=== PATIENT | female | born 1935 | race Native Hawaiian/Other Pacific Islander ===

== ENCOUNTER 2017-01-05 10:47 | Observation (INO) | payer MEDICAID ==
[2017-01-05] VITALS (8 sets, daily range): BP systolic 148–183; BP diastolic 48–92; PULSE 42–64; RESP 14–18; O2SAT 96–99
[~2017-01-05] VITALS: Ht 152.4 cm; Wt 85.6 kg
--- NOTE | 2017-01-05 10:53 | ED.REPORT ---
HPI-General Illness Date of Service Jan 05, 2017 ED Provider: Jeison Brooks Pt is an 81 y/o female w/ a hx of IDDM, HTN, hyperlipidemia, hypothyroid, presenting to the ED via EMS with family due to generalized weakness and fatigue onset this morning. Family called EMS because the patient has been excessively fatigued today to the point of falling asleep during conversations. Associated symptoms include nausea, dizziness, lightheadedness, abdominal pain, constipation. She denies vomiting, focal numbness or weakness, slurred speech. They deny drug or alcohol use. She was apparently completely normal yesterday. Nursing Notes Stated Complaint: WEAKNESS Chief Complaint: General Complaint Nursing Notes Reviewed: Yes Allergies: Coded Allergies: No Known Allergies (Unverified , 01/05/17) Scheduled Aspirin (Aspirin) 81 Mg Tablet 81 MG PO DAILY Cholecalciferol (Vitamin D3) (Vitamin D) 1,000 Unit Tablet 2,000 UNITS PO DAILY Gabapentin (Gabapentin) 100 Mg Capsule 100 MG PO HS Hydrochlorothiazide (Hydrochlorothiazide) 12.5 Mg Capsule 12.5 MG PO DAILY Insulin Aspart (NovoLOG U-100 Pen) 100 Unit/Ml Insuln.pen 10 UNITS SQ MORNING Insulin Aspart (NovoLOG U100 Insulin Vial) 100 U/Ml U 7 UNIT SUBQ lunch/dinner Insulin Glargine (Lantus U100 Insulin Vial) 100 Unit/Ml Vial 40 UNITS SQ MORNING Levothyroxine (Levothyroxine) 100 Mcg Tablet 100 MCG PO DAILY Lisinopril (Lisinopril) 30 Mg Tablet 30 MG PO DAILY Lovastatin (Lovastatin) 40 Mg Tablet 40 MG PO HS Metformin ER (Metformin ER) 1,000 Mg Tablet 1,000 MG PO DAILY General Time Seen by MD: 10:52 Chief Complaint Other (Fatigue) Hx Obtained From: Patient, Other family..., EMS Arrived By: Ambulance Sudden in Onset?: No Onset Occurred: 1 - 4 hours ago Symptom Duration: Since onset Location: : Abdomen Quality: Painful Severity: Current: Mild Severity: Maximum: Mild Past Medical History Past Medical History IDDM Thyroid cancer Hypothyroid Hypertension Hyperlipidemia Past Surgical History None reported Smoking History Unknown if Ever Smoker Ambulatory Status Independent Review of Systems Full Review of Systems Constitutional: Reports: Fatigue, Weakness - generalized, Denies: Chills, Fever GI: Reports: Abdominal pain, Constipation, Nausea, Denies: Vomiting Neurologic: Reports: Dizziness, Lightheaded, Denies: Focal weakness, Numbness Complete sys rev & neg: except as marked. Physical Exam Vital Signs Vital Signs Date Time Temp Pulse Resp B/P Pulse Ox O2 Delivery O2 Flow Rate FiO2 01/05/17 13:21 36 60 16 151/67 97 Room Air 01/05/17 10:52 36.5 58 15 156/48 99 Room Air Initial VS: Reviewed, Vital signs normal ENT: Mucous membranes moist, Conjunctiva normal, No scleral icterus Neck: Supple, Full range of motion Respiratory: Breath sounds normal, Clear to auscultation, No respiratory distress Cardiovascular: Regular rate & rhythm, Heart sounds normal, Intact distal pulses Extremities: Vascular intact, Neuro intact, No swelling, No tenderness Skin: Warm, Dry, No cyanosis Psychiatric: Mood/affect normal, Behavior normal, Normal thought content General/Constitutional: Awake, Alert, Cooperative, Not toxic appearing Somnolent but easily arousable Head / Eyes: Atraumatic, Normocephalic, PERRL, EOMI, No nystagmus Abdomen: Atraumatic, Soft, No guarding, No rebound, No distention, No palpable mass Tenderness/Guarding/Rebound: Positive: Tender epigastric (mild) Neurologic: Oriented X3, Speech NL, No motor deficits, No sensory deficits, Cerebellar NL Conversant with normal voice Interpretation & Diagnostics Lab Results Interpretation Result Diagram: 01/05/17 1100 01/05/17 1100 Test 01/05/17 11:00 01/05/17 12:06 White Blood Count 6.1th/mm3 (3.8-10.1) Red Blood Count 4.28mil/mm3 (3.90-5.20) Hemoglobin 12.3g/dL (12.0-15.6) Hematocrit 36.7% (35.0-46.0) Mean Corpuscular Volume 85.7fL (81-100) Mean Corpuscular Hemoglobin 28.7pg (27.0-35.0) Mean Corpuscular Hemoglobin Concent 33.5% (32.0-37.0) Red Cell Distribution Width 12.7% (12.3-15.4) Platelet Count 234bil/L (150-400) Neutrophils (%) (Auto) 59.5% (40-74) Lymphocytes (%) (Auto) 27.8% (14-46) Monocytes (%) (Auto) 7.0% (4-12) Eosinophils (%) (Auto) 5.2% (0-5) Basophils (%) (Auto) 0.3% (0-3) Prothrombin Time 10.0sec (8.1-12.5) Prothromb Time International Ratio 0.94ratio Activated Partial Thromboplast Time 26.0sec (22.8-33.0) Sodium Level 138mEq/L (134-144) Potassium Level 3.7mEq/L (3.5-5.2) Chloride Level 99mEq/L (97-108) Carbon Dioxide Level 25mmol/L (18-29) Blood Urea Nitrogen 20mg/dL (8-27) Creatinine 0.99mg/dL (0.57-1.00) Estimat Glomerular Filtration Rate 77mL/min (>59) Glucose Level 219mg/dL (60-99) Calcium Level 9.2mg/dL (8.5-10.1) Total Bilirubin 0.4mg/dL (0.0-1.2) Aspartate Amino Transf (AST/SGOT) 14U/L (0-50) Alanine Aminotransferase (ALT/SGPT) 8U/L (0-32) Alkaline Phosphatase 54U/L (25-165) Troponin T 0.010ug/L (0.0-0.011) Total Protein 6.5g/dL (6.4-8.4) Albumin 3.3g/dL (3.4-5.0) Alcohols < 10mg/dL (0-10) Urine Color Yellow (YELLOW) Urine Appearance Hazy (CLEAR,HAZY) Urine pH 5.5 (5.0-8.0) Urine Specific [place] 1.020 (1.003-1.035) Urine Protein Tracemg/dL (NEG,TRACE) Urine Glucose (UA) 100mg/dL (NEGATIVE) Urine Ketones Negativemg/dL (NEGATIVE) Urine Occult Blood Trace (NEGATIVE) Urine Nitrite Negative (NEGATIVE) Urine Bilirubin Negative (NEGATIVE) Urine Urobilinogen Normalmg/dL (NORMAL) Urine Leukocyte Esterase Negative (NEGATIVE) Urine RBC 0-2/hpf (0-2) Urine WBC 0-5/hpf (0-5) Urine Epithelial Cells Occasional/hpf (NONE-MOD) Urine Crystals None seen (NONE SEEN) Urine Bacteria Few/hpf (NONE-FEW) Urine Hyaline Casts None/lpf (NONE) Urine Granular Casts None seen (NONE SEEN) Urine Waxy Casts None seen (NONE SEEN) Urine Red Blood Cell Casts None seen (NONE SEEN) Urine White Blood Cell Casts None seen (NONE SEEN) Urine Mucus None seen (None Seen) Urine Trichomonas None seen (NONE SEEN) Urine Yeast None (NONE SEEN) Urinalysis Comment None Urine Culture Reflexed Not indicated Urine Opiates Screen Negative Urine Methadone Screen Negative Urine Barbiturates Screen Negative Urine Amphetamines Screen Negative Urine Benzodiazepines Screen Negative Urine Cocaine Metabolite Screen Negative Urine Cannabinoids Screen Negative ECG Interpretation ECG Interpretation: Sinus or ectopic atrial rhythm rate 50 Time: 11:10 Interpreted by: ED physician Normal ECG Interpretation: No acute ischemic changes, No change from prior ECGs ABG Interpretation ABG Interpretation: 7.424/43/79.8/27.6/3.3 Exam Performed by: [facility] Exam Interpreted by: ED physician Indication: Other (Somnolence) X-Ray Chest Interpretation Chest Xray Interpretation: IMPRESSION: No acute cardiopulmonary disease process. Dictated by: Azra Nava MD, PhD on 01/05/2017 at 11:33 Approved by: Azra Nava MD, PhD on 01/05/2017 at 11:33 View: Portable, 1 view Interpretation / Wet Read by: Interpret - Radiologist CT Head Interpretation IMPRESSION: 1. Thin hyperdense serpiginous appearance within the left frontal lobe laterally extending to the calvarium. Overall appearance appears more dense than expected for hemorrhage and finding is suspicious related to chronic calcifications, possibly dural in nature. However, given the somewhat atypical appearance, small focus of underlying hemorrhage cannot be definitively excluded. Six-hour interval followup is recommended to document stability. 2. Moderate atrophy and chronic microvascular ischemic changes. Dictated by: Georgina Acevedo M.D. on 01/05/2017 at 11:42 Approved by: Georgina Acevedo M.D. on 01/05/2017 at 11:44 Study: Head CT no contrast Interpretation / Wet Read by: Interpret - Radiologist Re-Eval/Medical Decision Med Decision/Clinical Course 1-year-old diabetic with somnolence and dizziness of unclear etiology. Will plan to admit for stroke. Neurology consulted. Aspirin is held and not given due to CT readings which which may represent either calcification or a minor bleed. NIH stroke scale is 5 however for the points are treatable to bilateral symmetric lower extremity weakness. Time of Eval: 12:28 Re-Evaluation/Progress Note: Pt rechecked. Continues to feel dizzy and lightheaded. Informed pt of need for admission. Pt understands and agrees with plan for admission. All questions addressed. Consultation #1: Referral / Consult Name: Alexander Hoover MD Consulted With: Hospitalist Call Returned at: 13:44 Spare Hand: Will see patient, Agrees with eval, Agrees with plan, Accepts admit Note: Requests neuro be consulted. Consultation #2: Referral / Consult Name: Al Snyder MD Consulted With: Neurology Call Returned at: 13:58 Spare Hand: Agrees with eval, Agrees with plan Note: Will consult if requested. Counseled Regarding: Diagnosis, Lab results, Need for admission Discharge & Departure Primary Impression: Dizziness Additional Impression: At risk for stroke Disposition: ADMITTED TO HOSPITAL Discharge Condition All VS Reviewed: Yes Condition: Stable Referrals: OTHER,PHYSICIAN (PCP) Scribe Attestation Portions of this note were transcribed by Noble Guerra. I, Dr. Brooks, personally performed the history, physical exam and medical decision-making; I reviewed and confirmed the accuracy of the information in the transcribed note. Signed by Zohra Astudillo, 01/05/17 - 0449 Risk Factors )( TPA Administration/Criteria Stroke Thrombolytic Therapy : TPA Considered: Yes TPA Administered Intravenously: No, not indicated NIH Stroke Scale Level of Consciousness: Not alert, arousable (1) Ask Month & Age: Both questions right (0) Open/Close Eyes/Hand Supervisor Vat House: Performs both tasks (0) Horizontal EO Movements: None (0) Visual Martin: No visual loss (0) Facial Palsy: Normal symmetry (0) Right Arm Motor Drift (10s): No drift 10 sec (0) Left Arm Motor Drift (10s): No drift 10 sec (0) Right Leg Motor Drift (5s): Drift, hits bed (2) Left Leg Motor Drift (5s): Drift, hits bed (2) Limb Ataxia FNF/Heel-Alexis: No ataxia (0) Sensation (Arms/Legs/Face): No sensory loss (0) Language Aphasia: No aphasia, normal (0) Dysarthria: No dysarthria, normal (0) Extinction/Inattention: No exctinct/inattent (0) NIHSS Score: 5 Time NIHSS Performed: 12:05 Date NIHSS Performed: Jan 05, 2017 Jeison Brooks DO Jan 05, 2017 10:53 NOBLE GUERRA Jan 05, 2017 11:03
[2017-01-05] MEDS ORDERED: 0.9% Sodium Chloride 1,000 ML IV ONE (10:57)
[2017-01-05 11:12] LABS: BASOPHILS % (AUTO) 0.3 % (0-3); EOSINOPHILS % (AUTO) 5.2 % (0-5); Mean Corpuscular Hemoglobin 28.7 pg (27.0-35.0); Mean Corpuscular Volume 85.7 fL (81-100); NEUTROPHILS % (AUTO) 59.5 % (40-74); Platelet Count 234 bil/L (150-400)
--- NOTE | 2017-01-05 11:34 | DRSVH ---
PROCEDURE: X-RAY CHEST ONE VIEW, PORTABLE ([id number]) INDICATIONS: weakness TECHNIQUE: One view of the chest was acquired. COMPARISON: [facility], CR, XR CHEST 1VW (PORTABLE), 02/06/2016, 17:14. FINDINGS: Surgical changes and devices: None. Lungs and pleura: No pleural effusions or pneumothorax. Lungs are clear. Mediastinum: Mediastinal contours appear normal. Heart size is normal. Bones and chest wall: No suspicious bony lesions. Overlying soft tissues appear unremarkable. IMPRESSION: No acute cardiopulmonary disease process. Dictated by: Azra Nava MD, PhD on 01/05/2017 at 11:33 Approved by: Azra Nava MD, PhD on 01/05/2017 at 11:33
[2017-01-05 11:38] LABS: INR 0.94 ratio
--- NOTE | 2017-01-05 11:46 | DRSVH ---
PROCEDURE: CT BRAIN WITHOUT CONTRAST ([id number]) INDICATIONS: excessive somnolence TECHNIQUE: Noncontrast 4.5 mm thick angled axial sections acquired from the foramen magnum to the vertex, with c oronal reformats. COMPARISON: None. FINDINGS: Image quality: Excellent. CSF spaces: Basal cisterns are patent. No extra-axial fluid collections. The ventricles are symmet dorota in size and shape. Brain: There is a focus of thin, serpiginous calcification along the lateral aspect of the left front al lobe seen on series 3 image 21, extending to the calvarium. No priors are available for comparison . There is cerebral volume loss for age, with resultant ventricular and sulcal prominence. There are periventricular and deep white matter chronic small vessel ischemic changes. There is intracranial internal carotid artery atherosclerosis. Skull and face: Calvarium and visualized facial bones appear intact, without suspicious lesions. Sinuses: Visualized sinuses and mastoids are clear. IMPRESSION: 1. Thin hyperdense serpiginous appearance within the left frontal lobe laterally extending to the mariana varium. Overall appearance appears more dense than expected for hemorrhage and finding is suspicious related to chronic calcifications, possibly dural in nature. However, given the somewhat atypical sarah earance, small focus of underlying hemorrhage cannot be definitively excluded. Six-hour interval foll owup is recommended to document stability. 2. Moderate atrophy and chronic microvascular ischemic changes. Dictated by: Georgina Acevedo M.D. on 01/05/2017 at 11:42 Approved by: Georgina Acevedo M.D. on 01/05/2017 at 11:44
--- NOTE | 2017-01-05 11:54 | NUR ---
Evaluation completed. Please go to "Notes" then click on "Assessments and Notes" (bottom left corner of screen). Then select appropriate discipline tab on top of screen.
--- NOTE | 2017-01-05 12:02 | ABG ---
DateTimeAnalyzed 11:57:00 -_ pH ____7.424 - 7.350 7.450 pCO2 ___42.9__ -mmHg 35.0 45.0 pO2 ___79.8__ -mmHg 69.0 116 HCO3- ___27.6__ -mmol/L 22.0 26.0 ABE ____3.3__ -mmol/L -2.0 2.0 tHb ___12.0__ -g/dL O2Hb ___94.7__ -% COHb ____1.3__ -% MetHb ____0.9__ -% sO2 ___96.8__ -% FIO2 ___21.0__ -% Drawn By MT - Date/Time Notified____ 12:02:00 -_ Notified By MT - Notified Whom _O'Georgina - B 751 -mmHg tO2 ___16.1__ -Vol% Danie test N/A -
[2017-01-05 12:40] LABS: APPEARANCE,URINE HAZY (CLEAR,HAZY); COLOR,URINE YELLOW (YELLOW); PH,URINE 5.5 (5.0-8.0); UROBILINOGEN,URINE NORMAL (NORMAL)
[2017-01-05 12:41] LABS: OCCULT BLOOD,URINE TRACE (NEGATIVE)
[2017-01-05] MEDS ORDERED: INSU100I SQ (13:11)
[2017-01-05] MEDS ORDERED: HYDR12.5 PO (13:11)
[2017-01-05] MEDS ORDERED: LISI30TA5 PO (13:11)
[2017-01-05] MEDS ORDERED: CHOL100043 PO (13:11)
[2017-01-05] MEDS ORDERED: GABA-500 PO (13:11)
[2017-01-05] MEDS ORDERED: METF-496 PO (13:11)
[2017-01-05] MEDS ORDERED: LOVA40TA PO (13:11)
[2017-01-05] MEDS ORDERED: INSU100C8 SUBQ (13:11)
[2017-01-05] MEDS ORDERED: LEVO100T6 PO (13:11)
[2017-01-05] MEDS ORDERED: INSU100V7 SQ (13:11)
[2017-01-05] MEDS ORDERED: ASPI-973 PO (13:11)
[2017-01-05] MEDS ORDERED: Polyethylene Glycol (PEG) 17 Gm Powder PO PRN (13:55)
[2017-01-05] MEDS ORDERED: Ondansetron 2 mg/mL 2 mL Inj IVPUSH PRN (13:55)
[2017-01-05] MEDS ORDERED: Alum-Mag Hydrox-Simeth 30 mL Suspension PO PRN (13:55)
--- NOTE | 2017-01-05 15:08 | NUR ---
Admit note- Received patient from Emergency Dept. Alert, but sleepy and slow to answer questions. Patient knows date.place and time. Able to sit up and transfer to bathroom with assist and guidance with PT. Gait was steady, but patient does complain of dizziness when getting up. Tele- sinus geraldo 50's. Patient speaks limited Urdu. Health history given by daughter and family members. Oriented to room, call light, tele, etc.
--- NOTE | 2017-01-05 15:25 | NUR ---
Evaluation completed. Please go to "Notes" then click on "Assessments and Notes" (bottom left corner of screen). Then select appropriate discipline tab on top of screen.
--- NOTE | 2017-01-05 16:19 | DRSVH ---
PROCEDURE: US BILATERAL DUPLEX DOPPLER IMAGING OF THE CAROTIDS ([id number]) INDICATIONS: Possible CVA TECHNIQUE: Color and pulse Doppler interrogation was performed of both carotid systems, with image documentation and velocity measurements. COMPARISON: None. FINDINGS: All stenosis calculations are based on NASCET criteria. Right side: Brachial blood pressure: Not obtained. Common carotid artery peak systolic velocity: 106 cm/sec. Internal carotid artery peak systolic velocity: 89 cm/sec. Internal carotid artery end diastolic velocity: 25 cm/sec. External carotid artery peak systolic velocity: 72 cm/sec. ICA/CCA peak systolic ratio: 0.8. Horan scale imaging description: Minimal plaque. Percent internal carotid artery stenosis: Less than 50%. Vertebral artery: Flow direction is antegrade. Left side: Brachial blood pressure: 177/70 mm Hg. Common carotid artery peak systolic velocity: 81 cm/sec. Internal carotid artery peak systolic velocity: 115 cm/sec. Internal carotid artery end diastolic velocity: 22 cm/sec. External carotid artery peak systolic velocity: Extending 9 cm/sec. ICA/CCA peak systolic ratio: 1.4 Horan scale imaging description: Minimal plaque. Percent internal carotid artery stenosis: Less than 50%. Vertebral artery: Flow direction is antegrade. IMPRESSION: Less than 50% bilateral internal carotid artery stenosis. Dictated by: Miguel Quezada RRA Interpreted: Elissa Keys MD on 01/05/2017 at 16:17 Transcribed by: CHENTE on 01/05/2017 at 16:19 Approved by: Elissa Keys M.D. on 01/05/2017 at 17:43
--- NOTE | 2017-01-05 17:49 | DRSVH ---
PROCEDURE: CT BRAIN WITHOUT CONTRAST ([id number]) INDICATIONS: repeat for calcification vs bleed TECHNIQUE: Noncontrast 4.5 mm thick angled axial sections acquired from the foramen magnum to the vertex, with c oronal reformats. COMPARISON: [facility], CT, CT BRAIN WO CON, 01/05/2017, 11:31. FINDINGS: Image quality: Excellent. CSF spaces: Basal cisterns are patent. No extra-axial fluid collections. The ventricles are symmet dorota in size and shape. Brain: No intracranial bleeds or masses. There is cerebral volume loss for age, with resultant vent ricular and sulcal prominence. There are periventricular and deep white matter chronic small vessel ischemic changes. Focal serpiginous calcification is redemonstrated along the left frontal calvarium unchanged from the study from earlier today. There is intracranial internal carotid artery atheroscle rosis. Skull and face: Calvarium and visualized facial bones appear intact, without suspicious lesions. Sinuses: Visualized sinuses and mastoids are clear. IMPRESSION: 1. Stable appearance of the left frontal calcification, likely within the subdural space when compare d with the study from earlier today. 2. No new acute intracranial findings. 3. Chronic findings likely associated with microvascular ischemia, as before. Dictated by: Dinora Soto M.D. on 01/05/2017 at 17:44 Approved by: Dinora Soto M.D. on 01/05/2017 at 17:48
--- NOTE | 2017-01-05 19:44 | PCM.HPMED ---
Subjective Date of Service Jan 05, 2017 Primary Provider: Admitting Physician: Alexander Hoover MD Primary Care Physician: Other,Physician Attending Physician: Alexander Hoover MD Chief Complaint: "I could not stand up" History of Present Illness: Patient is a very pleasant 81-year-old female from the [facility] who speaks very little Togolese. Patient was accompanied by her grandson "Arthur" who states that he is fluent in Togolese and Liberian language. He was able to be his grandmothers tin roller hot mill. The patient is visiting her daughter and grandson here in [place]. She normally lives with another granddaughter and in [place], [place]. The patient stated that she awoke at approximately 8 AM this morning and she "could not stand up". She complained of dizziness as well. She then called 911. In the emergency room patient was evaluated by Dr. Zachariah Cunningham was told that the family called EMS because the patient had been excessively fatigued to the point of falling asleep during conversations. Associated symptoms included nausea dizziness, lightheadedness, abdominal pain and constipation. She denied any vomiting or focal numbness or weakness or slurred speech. She was apparently completely "normal" yesterday. Therefore Dr. Jeison Cunningham ordered a CT scan of the brain which showed a thin hyperdense serpiginous appearance within the left frontal lobe laterally extending to the calvarium. The overall appearance appeared more dense than expected for hemorrhage and the finding is suspicious related to chronic calcifications, possibly dural in nature. However, given the somewhat atypical appearance, small focus of underlying hemorrhage cannot be definitively ordered excluded. Six-hour interval follow-up was recommended to document stability. The brain also showed moderate atrophy and chronic microvascular ischemic changes. Dr. Zachariah Cunningham therefore admitted the patient to the hospital service with a diagnosis of "stroke". He consulted with Dr. Al Betancur of neurology who said that he would see the patient. Aspirin was held due to the potential of bleeding versus calcification. The patient had an NIH stroke scale of 5 however 4 of the 5 points were treatable due to bilateral symmetrical lower extremity weakness. Dr. Zachariah Cunningham's primary impression was dizziness and that the patient was at "at risk for stroke. Again he was admitted to the hospital service for further evaluation treatment. Review of Systems: General: Patient is in no apparent distress. HEENT: Patient has a headache, however is not able to well describe it. The patient has no diplopia, patient has no changes in vision. Patient states that she has had bilateral cataract surgery. Patient has no problems with their ears , nose or throat. Patient has no known new dental problems. She has very poor dentition and is missing many teeth. Patient has no pharyngitis or history of thrush. Neck: Patient has no stiffness in the neck. Patient has no lymphadenopathy. Patient has no other problems with her neck. Pulmonary: Patient has no shortness of breath, no cough, no expectoration of sputum. Patient has no pleurisy. Patient has no chest pain. Patient has no history of asthma or COPD. Cardiovascular: Patient has no chest pain. Patient has no history of heart murmur. Patient has no palpitations. Patient has no history of myocardial infarction. Patient has no history of coronary artery disease. Gastrointestinal: Patient has no history of hepatitis A, B or C. Patient has no history of peptic ulcer disease. Patient has no history of gastroesophageal reflux disease. Patient has no history of nausea, vomiting, or diarrhea. Patient has no history of hematemesis, hematochezia, or melena. Patient has no history of colitis. Renal: Patient has no history of kidney disease. No history of kidney stones. Genitourinary: Patient has no history of dysuria, frequency, or incontinence. Patient has no previous history of genitourinary problems. Musculoskeletal: Patient has no history of muscular or skeletal problems. Neurologic: Patient has no history of stroke, no history of seizure, no history of TIA. However, she relates that she has had "fainting" spells in the past. They sound like true syncopal episodes with collapse. Psychiatric: Patient has no history of psychiatric problems. The remainder of the entire review of systems was reviewed with patient and is as mentioned above otherwise negative. Allergies Coded Allergies: No Known Allergies (Unverified , 01/05/17) Home Medications Scheduled Aspirin (Aspirin) 81 Mg Tablet 81 MG PO DAILY Cholecalciferol (Vitamin D3) (Vitamin D) 1,000 Unit Tablet 2,000 UNITS PO DAILY Gabapentin (Gabapentin) 100 Mg Capsule 100 MG PO HS Hydrochlorothiazide (Hydrochlorothiazide) 12.5 Mg Capsule 12.5 MG PO DAILY Insulin Aspart (NovoLOG U-100 Pen) 100 Unit/Ml Insuln.pen 10 UNITS SQ MORNING Insulin Aspart (NovoLOG U100 Insulin Vial) 100 U/Ml U 7 UNIT SUBQ lunch/dinner Insulin Glargine (Lantus U100 Insulin Vial) 100 Unit/Ml Vial 40 UNITS SQ MORNING Levothyroxine (Levothyroxine) 100 Mcg Tablet 100 MCG PO DAILY Lisinopril (Lisinopril) 30 Mg Tablet 30 MG PO DAILY Lovastatin (Lovastatin) 40 Mg Tablet 40 MG PO HS Metformin ER (Metformin ER) 1,000 Mg Tablet 1,000 MG PO DAILY PMH IDDM-patient states that she has had diabetes for very long time Thyroid cancer-patient was diagnosed with thyroid cancer in her 50s. She was treated at [facility] she states with surgery and radiation therapy. He states that [place] and the [facility] was a testing site for a nuclear bone during the World War II era Hypothyroid-patient is now hypothyroid since she was in her 50s. Is on thyroid replacement therapy for the respiratory life. Hypertension Hyperlipidemia Surgical History Patient states that she has had bilateral cataract surgery Patient states that she has had a tonsillectomy Patient states that she has had a thyroid resection surgery. Patient has had a D&C Patient denies any other surgeries. Family History Patient's father in his 90s after a fall. Patient's mother at a very young age when the patient was only 2 years old from influenza. Patient had 2 sisters, one from kidney problems and one is alive and presumably well The patient had no brothers. Social History Hx Alcohol Use: No Hx Substance Use: No Hx Tobacco Use: No Smoking Status: Never Smoker Living Arrangement: with Family Additional Information Patient was born and raised in the [facility] she there and had 9 children. One of her children . She was in 1994 and moved to [facility] in 2003 to [facility] to live with her daughter. When I asked her if she smoke or drink she stated that she was a good Bahai and did not do any of the same and never has. Exam Vital Signs Vital Sign - Last Date Time Temp Pulse Resp B/P Pulse Ox O2 Delivery O2 Flow Rate FiO2 01/05/17 18:53 36.7 61 18 181/92 98 Room Air Exam General: Patient is in no apparent distress HEENT: Head is atraumatic and normocephalic. Eyes: Pupils are equally round and reactive to light and accommodation. Extraocular muscles are intact. Sclera are white, anicteric. Subconjunctival mucosa is pink. Ears and nose are unremarkable. Oropharynx: There is no mucosal lesions, there is no thrush, there is no pharyngitis. Neck: Is supple, there are no nodes, or masses or tenderness. Chest: Is clear to auscultation and percussion. There are no rales, rhonchi, wheezes or rubs. Heart: Rate, rhythm is regular. There are a few irregular beats. There is no murmur, rub or gallop. Although, heart tones are distant Abdomen: Good bowel sounds are present. Abdomen is obese, soft, nontender, no organomegaly or masses were appreciated. Extremities: Are symmetrical and well perfused. There is trace edema, there is no cellulitis, no rash. Neurologic: There are no focal neurological deficits. Cranial nerves II through XII are intact. There are no sensory or motor deficits. Patient was able to ambulate to the restroom with physical therapy and nursing. Psychiatric: Patients mood is calm and shows no sign of agitation. Genital: Deferred Rectal: Deferred Lab and Diagnostics Result Diagram: 01/05/17 1100 01/05/17 1100 X-Rays, CTs and MRIs PROCEDURE: X-RAY CHEST ONE VIEW, PORTABLE ([id number]) INDICATIONS: weakness TECHNIQUE: One view of the chest was acquired. COMPARISON: [facility], CR, XR CHEST 1VW (PORTABLE), 02/06/2016, 17: 14. FINDINGS: Surgical changes and devices: None. Lungs and pleura: No pleural effusions or pneumothorax. Lungs are clear. Mediastinum: Mediastinal contours appear normal. Heart size is normal. Bones and chest wall: No suspicious bony lesions. Overlying soft tissues appear unremarkable. IMPRESSION: No acute cardiopulmonary disease process. Dictated by: Azra Nava MD, PhD on 01/05/2017 at 11:33 Approved by: Azra Nava MD, PhD on 01/05/2017 at 11:33 PROCEDURE: CT BRAIN WITHOUT CONTRAST ([id number]) INDICATIONS: excessive somnolence TECHNIQUE: Noncontrast 4.5 mm thick angled axial sections acquired from the foramen magnum to the vertex, with coronal reformats. COMPARISON: None. FINDINGS: Image quality: Excellent. CSF spaces: Basal cisterns are patent. No extra-axial fluid collections. The ventricles are symmetric in size and shape. Brain: There is a focus of thin, serpiginous calcification along the lateral aspect of the left frontal lobe seen on series 3 image 21, extending to the calvarium. No priors are available for comparison. There is cerebral volume loss for age, with resultant ventricular and sulcal prominence. There are periventricular and deep white matter chronic small vessel ischemic changes. There is intracranial internal carotid artery atherosclerosis. Skull and face: Calvarium and visualized facial bones appear intact, without suspicious lesions. Sinuses: Visualized sinuses and mastoids are clear. IMPRESSION: 1. Thin hyperdense serpiginous appearance within the left frontal lobe laterally extending to the calvarium. Overall appearance appears more dense than expected for hemorrhage and finding is suspicious related to chronic calcifications, possibly dural in nature. However, given the somewhat atypical appearance, small focus of underlying hemorrhage cannot be definitively excluded. Six-hour interval followup is recommended to document stability. 2. Moderate atrophy and chronic microvascular ischemic changes. Dictated by: Georgina Acevedo M.D. on 01/05/2017 at 11:42 Approved by: Georgina Acevedo M.D. on 01/05/2017 at 11:44 ROCEDURE: US BILATERAL DUPLEX DOPPLER IMAGING OF THE CAROTIDS ([id number]) INDICATIONS: Possible CVA TECHNIQUE: Color and pulse Doppler interrogation was performed of both carotid systems, with image documentation and velocity measurements. COMPARISON: None. FINDINGS: All stenosis calculations are based on NASCET criteria. Right side: Brachial blood pressure: Not obtained. Common carotid artery peak systolic velocity: 106 cm/sec. Internal carotid artery peak systolic velocity: 89 cm/sec. Internal carotid artery end diastolic velocity: 25 cm/sec. External carotid artery peak systolic velocity: 72 cm/sec. ICA/CCA peak systolic ratio: 0.8. Horan scale imaging description: Minimal plaque. Percent internal carotid artery stenosis: Less than 50%. Vertebral artery: Flow direction is antegrade. Left side: Brachial blood pressure: 177/70 mm Hg. Common carotid artery peak systolic velocity: 81 cm/sec. Internal carotid artery peak systolic velocity: 115 cm/sec. Internal carotid artery end diastolic velocity: 22 cm/sec. External carotid artery peak systolic velocity: Extending 9 cm/sec. ICA/CCA peak systolic ratio: 1.4 Horan scale imaging description: Minimal plaque. Percent internal carotid artery stenosis: Less than 50%. Vertebral artery: Flow direction is antegrade. IMPRESSION: Less than 50% bilateral internal carotid artery stenosis. Dictated by: Miguel Quezada [facility] Interpreted: Elissa Keys MD on 01/05/2017 at 16:17 Transcribed by: CHENTE on 01/05/2017 at 16:19 Approved by: Elissa Keys M.D. on 01/05/2017 at 17:43 PROCEDURE: CT BRAIN WITHOUT CONTRAST ([id number]) INDICATIONS: repeat for calcification vs bleed TECHNIQUE: Noncontrast 4.5 mm thick angled axial sections acquired from the foramen magnum to the vertex, with coronal reformats. COMPARISON: [facility], CT, CT BRAIN WO CON, 01/05/2017, 11:31. FINDINGS: Image quality: Excellent. CSF spaces: Basal cisterns are patent. No extra-axial fluid collections. The ventricles are symmetric in size and shape. Brain: No intracranial bleeds or masses. There is cerebral volume loss for age , with resultant ventricular and sulcal prominence. There are periventricular and deep white matter chronic small vessel ischemic changes. Focal serpiginous calcification is redemonstrated along the left frontal calvarium unchanged from the study from earlier today. There is intracranial internal carotid artery atherosclerosis. Skull and face: Calvarium and visualized facial bones appear intact, without suspicious lesions. Sinuses: Visualized sinuses and mastoids are clear. IMPRESSION: 1. Stable appearance of the left frontal calcification, likely within the subdural space when compared with the study from earlier today. 2. No new acute intracranial findings. 3. Chronic findings likely associated with microvascular ischemia, as before. Dictated by: Dinora Soto M.D. on 01/05/2017 at 17:44 Approved by: Dinora Soto M.D. on 01/05/2017 at 17:48 Assessment & Plan Patient is a very pleasant 81-year-old female from the [facility] who speaks very little Togolese. Patient was accompanied by her grandson "Arthur" who states that he is fluent in Togolese and Liberian language. He was able to be his grandmothers tin roller hot mill. The patient is visiting her daughter and grandson here in [place]. She normally lives with another granddaughter and in [place], [place]. The patient stated that she awoke at approximately 8 AM this morning and she "could not stand up". She complained of dizziness as well. She then called 911. In the emergency room patient was evaluated by Dr. Zachariah Cunningham was told that the family called EMS because the patient had been excessively fatigued to the point of falling asleep during conversations. Associated symptoms included nausea dizziness, lightheadedness, abdominal pain and constipation. She denied any vomiting or focal numbness or weakness or slurred speech. She was apparently completely "normal" yesterday. Therefore Dr. Jeison Cunningham ordered a CT scan of the brain which showed a thin hyperdense serpiginous appearance within the left frontal lobe laterally extending to the calvarium. The overall appearance appeared more dense than expected for hemorrhage and the finding is suspicious related to chronic calcifications, possibly dural in nature. However, given the somewhat atypical appearance, small focus of underlying hemorrhage cannot be definitively ordered excluded. Six-hour interval follow-up was recommended to document stability. The brain also showed moderate atrophy and chronic microvascular ischemic changes. Dr. Zachariah Cunningham therefore admitted the patient to the hospital service with a diagnosis of "stroke". He consulted with Dr. Al Betancur of neurology who said that he would see the patient. Aspirin was held due to the potential of bleeding versus calcification. The patient had an NIH stroke scale of 5 however 4 of the 5 points were treatable due to bilateral symmetrical lower extremity weakness. Dr. Zachariah Cunningham's primary impression was dizziness and that the patient was at "at risk for stroke. Again he was admitted to the hospital service for further evaluation treatment. # Weakness and dizziness - Etiology is uncertain. Patient will start he had regained some strength - Possible cerebrovascular accident which may not be clearly elucidated on both brain CT scans. - Abnormal finding on CT scan earlier today is currently unchanged. - We will check MRI of the brain in a.m. using stroke protocol. - I have consulted and spoken to neurologist Dr. Al Betancur who will see the patient in consultation. - We will hold aspirin at this time, due to the potential of possible bleeding - We will continue with IV fluids with normal saline with 20 mg KCl at 80 mL an hour. - We will check echocardiogram # Insulin-dependent diabetes mellitus - Continue home insulin dosing as well sliding scale insulin coverage. - Continue metformin as at home - We will monitor blood sugars before meals and at bedtime. # Hypertension - Continue home lisinopril. - We will add low-dose amlodipine. - Patient has suffered a cerebrovascular accident will allow "permissive hypertension ". # Hyperlipidemia - We will continue lovastatin. Disposition: It is suspected that patient will be here for more than 2 minutes for evaluation and treatment of the above condition. Her for, patient was admitted to the hospital as an inpatient. Pain Evaluation: Adequate Pain Control GI Prophylaxis: Proton Pump Inhibitor VTE Prophylaxis: Sub-Q Enoxaparin Resuscitation Status: CPR: Attempt Resuscitation Alexander Hoover MD Jan 05, 2017 19:44
[2017-01-05] MEDS: 0.9% NaCl + KCl 20 mEq/L 1,000 ML IV SCH (21:26)
[2017-01-05] MEDS: Insulin LISPRO 300 Unit/3 mL Inj SUBQ SCH (22:12)
[2017-01-06] VITALS (7 sets, daily range): BP systolic 137–196; BP diastolic 71–95; PULSE 52–77; RESP 16–18; O2SAT 94–99
--- NOTE | 2017-01-06 03:45 | NUR ---
Activity Pt up and down to BR with assist. Able to make simple needs known. Grandson present for start of youth support worker but later went home with family. Pt A&Ox3 - answering appropriately, COLEMAN. Frequency with urination, wearing incont pull-up brief. No acute issues this shift. Has been sleeping soundly majority of shift, easily arousable - call light in reach. Care continues.
--- NOTE | 2017-01-06 05:05 | NUR ---
BP BP trending upward. Per 'permissive hypertension' threshold: SPB < 220. Last BP reading 196/71. BP increased from 2.5mg PO Amlodipine dose that was given at HS. Pt asymptomatic. Care continues.
[2017-01-06 06:44] LABS: BASOPHILS % (AUTO) 0.2 % (0-3); EOSINOPHILS % (AUTO) 5.8 % (0-5); MONOCYTES % (AUTO) 6.9 % (4-12); Mean Corpuscular Hemoglobin 29.3 pg (27.0-35.0); Mean Corpuscular Volume 86.8 fL (81-100); NEUTROPHILS % (AUTO) 47.4 % (40-74); Platelet Count 217 bil/L (150-400)
[2017-01-06 07:18] LABS: Magnesium 1.8 mg/dL (1.6-2.6); Phosphorus 3.4 mg/dL (2.5-4.9)
[2017-01-06] MEDS: Insulin LISPRO 300 Unit/3 mL Inj SUBQ SCH ×10 (07:30→22:14)
[2017-01-06] MEDS: Insulin GLARgine 100 Unit/mL Syringe SUBQ SCH (08:58)
--- NOTE | 2017-01-06 10:08 | DRSVH ---
PROCEDURE: X-RAY CHEST, TWO VIEWS ([id number]) INDICATIONS: Possible Aspiration TECHNIQUE: 2 views of the chest were acquired. COMPARISON: [facility], CR, XR CHEST 1VW (PORTABLE), 01/05/2017, 11:06. [facility], CR, XR CHEST 1VW (PORTABLE), 02/06/2016, 17:14. FINDINGS: Surgical changes and devices: None. Lungs and pleura: No pleural effusions or pneumothorax. Lung volumes are low and left basilar airsp jose manuel opacity present. Mediastinum: Mediastinal contours are normal. Heart size is normal. Bones and chest wall: No suspicious bony abnormalities. Soft tissues appear unremarkable. IMPRESSION: Left atelectasis versus aspiration or pneumonia. Correlate clinically. Dictated by: Miguel Quezada RRA Interpreted: Azra Nava MD on 01/06/2017 at 10:07 Transcribed by: MAGDY on 01/06/2017 at 10:08 Approved by: Azra Nava MD, PhD on 01/06/2017 at 16:31
[2017-01-06] MEDS: Pantoprazole 40 mg ER24 Tablet PO SCH (10:13)
[2017-01-06] MEDS: metFORMIN ER 500 mg ER24 Tablet PO SCH (10:14)
[2017-01-06] MEDS ORDERED: Magnesium Sulf 2 Gm/50mL Water 2 GM in IV Premix 1 EACH IV ONE (10:25)
--- NOTE | 2017-01-06 11:12 | DRSVH ---
[facility] [address] [place] [address] Echocardiogram Report Name: ABELARDO NAGY Study Date: 01/06/2017 Height: 60 in Hospital Exam Location: [facility] Weight: 189 lb Gender: Female BSA: 1.8 m2 : 1935 Age: 81 yrs BP: 196/71 mmHg Reason For Study: CVA Ordering Physician: Performed By: Teena Kiser Referring Physician: Melisa Lewis Interpretation Summary The ejection fraction is estimated to be 60-65%. The left atrium is borderline dilated. A patent foramen ovale is present. Doppler evidence suggests a left to right interatrial shunt. There is mild aortic regurgitation. The right ventricular systolic pressure is estimated at 30 mmHg assuming a right atrial pressure of 3 mm Hg. Procedure: A two-dimensional transthoracic echocardiogram with color flow and Doppler was performed. The study quality was technically adequate. Left Ventricle: The left ventricle is normal in size, wall thickness, and systolic function without any focal wall motion abnormalities. The ejection fraction is estimated to be 60-65%. Assessment of diastolic parameters suggests a pseudonormalization pattern, consistent with elevated filling pressures. Right Ventricle: The right ventricle is normal in size, thickness and function. Atria: The left atrium is borderline dilated. Right atrial size is normal. A patent foramen ovale is present. Doppler evidence suggests a left to right interatrial shunt. Mitral Valve: The mitral valve leaflets appear borderline thickened, but open well. There is trace mitral regurgitation. Aortic Valve: The aortic valve opens well. There is mild aortic regurgitation. Tricuspid Valve: The tricuspid valve is normal in structure and function. There is trace tricuspid regurgitation. The right ventricular systolic pressure is estimated at 30 mmHg assuming a right atrial pressure of 3 mm Hg. Pulmonic Valve: The pulmonic valve is normal in structure and function. There is trace pulmonic regurgitation. Great Vessels: The aortic root is normal size. The dimensions of the ascending aorta are normal. The IVC is of normal diameter and collapses greater than 50% with a sniff. This suggests a low right atrial pressure of 3 mm Hg. Pericardium/ Pleura There is no pericardial effusion. There is no pleural effusion. MMode/2D Measurements & Calculations LVIDd: 3.8 cm LA dimension: 3.8 cm RA long axis Ao root diam LVIDs: 2.3 cm FS: 39.1 % LA A2 area: 21.0 cm RA area asc Aorta Diam IVSd: 0.85 cm LA A4 area: 21.5 cm LVPWd: 0.80 cm LA length (vol) : 16.2 cm Ao Arch Diam (Prox RA vol Trans): 2.8 cm LA vol: 64.8 ml : 44.2 ml LA vol index RA : 24.3 mm/ RVDd major IVC diam: 1.4 cm : 4.2 cm LV powell. diameter/BSA LV sys. diameter/BSA RVD1 (basal) RVD2 (mid): 2.9 cm (cm/m^2): 2.1 (cm/m^2): 1.3 Doppler Measurements & Calculations Ao V2 max: 108.6 cm/secMV E max darian MV E/A: 1.0 TR max darian Ao max P.7 mmHg : 89.6 cm/sec Med Peak E' Darian : 261.1 cm/sec Ao mean P.5 mmHg MV A max darian TR max PG AI P1/2t: 839.4 msec : 89.1 cm/sec E/E' med: 19.4 : 27.3 mmHg AI dec slope MV P1/2t Lat Peak E' Darian PA V2 max : 113.5 cm/s2c : 49.6 msec : 68.4 cm/sec E/E' lat: 19.8 PA mean PG E/e' average : 1.0 mmHg Pulm A Revs Dur MV A dur : 0.16 sec MV dec time: 0.17 sec MV P1/2t max darian Ao V2 mean PA V2 mean : 73.0 cm/sec : 47.0 cm/sec MVA(P1/2t) Ao V2 VTI : 4.4 cm2 : 31.0 cm Pulm Ramone Lazcano - MV A Dur: -0.02 msec Electronically signed by: Tobias Maldonado on Reading Physician:01/06/2017 11:11 AM
[2017-01-06] MEDS ORDERED: 0.9% Sodium Chloride 250 ML ONE (11:39)
--- NOTE | 2017-01-06 13:23 | DRSVH ---
PROCEDURE: MRI STROKE PROTOCOL ([id number]) Pre- and post-contrast brain MRI, non-contrast brain MR angiogram, pre- and postcontrast neck MR gonzalez ogram INDICATIONS: Left frontal lesion on ct scan with altered ms TECHNIQUE: Brain: Noncontrast axial T1 spin echo, axial T2 fast spin echo, sagittal and axial FLAIR, coronal T2 fast spin echo, axial gradient echo, axial diffusion and ADC through the brain. After the administr ation of contrast, axial 3D VIBE of the cranial vasculature and brain. Brain MRA: Non-contrast 3-D time of flight MR angiogram, with multiple pmkfqgc-fsjmgkdmg-ydxyrlbgrm (MIP) reformats performed. Neck MRA: Axial and sagittal TruFISP through the neck. Coronal dynamic MR angiogram during administ ration of contrast in the arterial and venous phases, with 3-dimenstional grzgtej-pelmhgtrk-pzcafzrfh n (MIP) reformats constructed from subtraction images. COMPARISON: [facility], CT, CT BRAIN WO CON, 01/05/2017, 17:19. FINDINGS: Image quality: Degraded by motion artifact. BRAIN: CSF spaces: Ventricles are normal in size and shape. Basal cisterns are patent. No extra-axial flu id collections. Brain: No acute intracranial bleeds. There is a 20 mm diameter region of extra-axial diffusion signa l elevation overlying the left posterolateral frontal lobe, in the region of the extra-axial calcifie d mass seen by CT. There is mild diffuse overlying dural thickening and enhancement. There is mild di ffuse cerebral volume loss. Mild degree of patchy high FLAIR signal signal within the periventricular and subcortical white matter, consistent with small vessel ischemic disease. Horan-white matter inter face is normal. Diffusion weighted images show no acute ischemic insults. Brainstem appears normal. Normal intravascular flow voids are present. No abnormal intracranial enhancement. Skull and face: There is mild ill-defined enhancement within the left posterolateral frontal calvari um overlying the above described extra-axial left frontal mass. Calvarial marrow signal is otherwise normal. Orbits appear normal. Sinuses: Sinuses and mastoids are clear. BRAIN MR ANGIOGRAM: Anterior circulation: Intracranial internal carotid arteries are normal in size and enhancement. Th e flow within the paired anterior cerebral arteries is normal and symmetric. Moderately reduced flow within the left middle cerebral artery, roughly 15 mm distal to its origin. The flow within the middl e cerebral arteries is otherwise normal and symmetric. The A1 segment of the right anterior cerebral artery is not seen and may be congenitally absent. The anterior communicating artery is seen. No occ lusions nor aneurysms. Posterior circulation: The visualized portions of the vertebral arteries demonstrate normal caliber, and join to form a normal appearing basilar artery. origin of the right posterior cerebral ar viri. The flow within the posterior cerebral arteries is normal and symmetric. No stenoses, occlusio ns, or aneurysms. NECK MR ANGIOGRAM: Carotids: Great vessels demonstrate a conventional anatomy as they arise from the aortic arch. The origins of the common carotid arteries appear patent. The bilateral common carotid arteries are tortu ous. There is associated kinking involving the proximal right common carotid artery, roughly 30 mm di stal to its origin, with moderate resulting stenosis. A 2nd region of kinking of the right mid common carotid artery is present, roughly 65 mm distal to its origin, which is also moderately stenotic. Th e right external carotid artery is patent. The right internal carotid artery is moderately stenotic a t its origin, measuring roughly 50% stenosis. The left common carotid artery is tortuous and demonstr ates a moderate stenosis roughly 60 mm distal to its origin at the site of vessel kinking. The left e xternal carotid artery is patent. Left internal carotid artery dimensions a mild, roughly 30% origin stenosis, and is otherwise patent. Posterior circulation: The origins of the vertebral arteries appear patent. More superior portions of both vertebral arteries demonstrate normal course and caliber, and join to form a normal appearing basilar artery. Miscellaneous: There is a moderate origin stenosis involving the right subclavian artery. Pre-contras t images through the neck show no soft tissue abnormalities. IMPRESSION: BRAIN MRI: 1. 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 Followup brain MRI with and without intravenous contrast in 3 months is recommended to ru le out last likely, more aggressive etiologies. 2. No acute process. No recent infarct. 3. Mild volume loss and small vessel ischemic disease. BRAIN MR ANGIOGRAM: 1. Moderate left middle cerebral artery stenosis. Otherwise negative cerebral MR angiography. NECK MR ANGIOGRAM: 1. 50% right and 30% left internal carotid artery origin stenoses. 2. Moderate bilateral common carotid artery stenoses secondary to vessel tortuosity and kinking. 3. Patent vertebral arteries bilaterally. The estimate of stenosis included in the report of the imaging study was calculated using the NASCET method Dictated by: Cali Siddiqui M.D. on 01/06/2017 at 12:58 Approved by: Cali Siddiqui M.D. on 01/06/2017 at 13:21
--- NOTE | 2017-01-06 15:36 | NUR ---
spiritual care: pt request brief visit. pt's grandson at bedside, attentive, pt held her hands out for prayer as she came to understand my role. Prayer and pt expressed comfort/
[2017-01-06] MEDS: 0.9% NaCl + KCl 20 mEq/L 1,000 ML IV SCH (16:13)
--- NOTE | 2017-01-06 19:11 | NUR ---
Mobility Pt is a SBA to the bathroom. She ambulated in her room with some generalized weakness noted. Blood pressure was elevated today (up to 196 systolic). Pt started on amlodipine. Continue to monitor.
--- NOTE | 2017-01-06 21:03 | CONS ---
[address] [address] CONSULTATION REPORT PATIENT: ABELARDO NAGY : 1935 MR#: [id number] ADMIT: 01/05/2017 JOB ID: [id number] DATE OF SERVICE: 01/06/2017 REQUESTING PROVIDER: Alexander Hoover MD CHIEF COMPLAINT: Sudden onset of generalized weakness and fatigue, difficulty arousing and staying awake, lethargic state. HISTORY OF PRESENTING ILLNESS: The patient is a pleasant 81-year-old woman with multiple medical problems, including diabetes, hypertension, hyperlipidemia, hypothyroidism who presented to the emergency department with generalized weakness and fatigue with rather sudden onset in the morning of January 05, 2017. Reportedly, family called the emergency medical services as the patient was noted to be excessively fatigue to the point of falling asleep during conversations. They were also noting nausea, dizziness, lightheadedness, abdominal pain and constipation. No focal numbness or weakness noted. No dysarthric speech. The patient does not drink. Blood Accu-Cheks did not demonstrate any evidence of hypoglycemia. She was evaluated for possible stroke. Initial chest x-ray demonstrated no acute cardiopulmonary disease process. CT of head demonstrated thin hyperdense serpiginous appearance within the left frontal lobe laterally extending to the calvarium. There was a concern for the possibility of hemorrhage. Moderate atrophy and chronic microvascular ischemic changes were noted. She also had a carotid duplex demonstrating less than 50% bilateral internal carotid artery stenosis. A repeat CT of her head demonstrated stable appearance of the left frontal calcification likely within the subdural space. A magnetic resonance angiography was then performed, stroke protocol. This demonstrated that the extraocular mass overlying the left posterolateral frontal lobe likely represents a calcified meningioma. To exclude the possibility of any other potential etiology, a repeat study performed in three months is recommended. No evidence of an acute infarct, mild volume loss and small-vessel ischemic disease. Moderate left middle cerebral artery stenosis. Otherwise negative cerebral magnetic resonance angiography. 50% right and 30% left internal carotid artery origin stenosis, moderate bilateral common carotid artery stenosis secondary to vessel tortuosity and kinking. Patent vertebral arteries bilaterally. A repeat chest x-ray demonstrated left atelectasis versus aspiration or pneumonia. An echocardiogram was performed, demonstrated that the ejection fraction was estimated to be 60% to 65%. The left atrium was borderline dilated. Patent foramen ovale was noted. Doppler evidence suggests a [id number]-ir-[id number] interatrial shunt. Mild aortic regurgitation. Right ventricular systolic pressure estimated at 30 mmHg assuming a right atrial pressure of 3 mmHg. LABORATORY STUDIES: WBC of 6.1, hemoglobin of 12.3, hematocrit 36.7, platelets of 234. Chemistry: Sodium 138, potassium 3.7, chloride 99, bicarb 25, BUN 20, creatinine 0.99, glucose 219, hemoglobin A1c 11.2, and LFTs within normal limits. Albumin was 3.3. Tox screen negative. I do not see a fasting lipid profile. Urinalysis: Yellow, hazy, trace protein, trace occult blood, 0-2 RBCs, 0-5 WBCs, occasional urine epithelial cells, few bacteria. PT was 10.0, INR 0.94 and PTT was 26.0. REVIEW OF SYSTEMS: A complete review of systems was performed. Her grandson is at the bedside and helped to interpret. She has a history of bilateral cataract surgery and there are changes noted on physical examination, consistent with this. She also has very poor dentition and is missing many teeth. ALLERGIES: No known drug allergies. MEDICATIONS: At home include: 1. Aspirin 81 mg daily. 2. Vitamin D 2000 international units daily. 3. Gabapentin 100 mg at bedtime. 4. Hydrochlorothiazide 12.5 mg daily. 5. Insulin. 6. Levothyroxine 100 mcg daily. 7. Lisinopril 30 mg daily. 8. Lovastatin 40 mg daily. 9. Metformin 1000 mg daily. PAST MEDICAL HISTORY: Diabetes, insulin dependent, type 2. History of thyroid cancer in her 50s. Hypothyroidism. Hypertension. Hyperlipidemia. SURGICAL HISTORY: Status post bilateral cataract surgery, status post tonsillectomy, status post thyroid resection surgery, status post dilatation and curettage. FAMILY HISTORY: No neurological disorders. SOCIAL HISTORY: No tobacco, alcohol, or drugs. Her grandson, Esther, is fluent in [place] and the Turkish language. He was able to be his grandmother's historic interpreter. Reportedly, the patient is visiting her daughter and grandson in [place]. She normally lives with another granddaughter in [place]. Based on the history, it is difficult to tell if she has been compliant with aspirin 81 mg daily. I did stress with her the need for compliance with aspirin 81 mg daily. We also discussed the importance of optimizing control for stroke risk factors including hypertension, hyperlipidemia, and diabetes. Certainly, there is room to continue to optimize control for diabetes. I did explain to her that there is evidence of intracranial stenosis, although it is noted to be mild that I did appreciate on the magnetic resonance angiogram. To review again, there is moderate left middle cerebral artery stenosis. The intracranial internal carotid arteries were noted to be normal in size and enhancement. The flow within the paired anterior cerebral arteries was noted to be normal and symmetric. Moderately reduced flow within the left middle cerebral artery was noted, roughly 15 mm distal to its origin. The flow within the middle cerebral arteries is otherwise normal and symmetric. The A-1 segment of the right anterior cerebral artery was not seen and may be congenitally absent. The anterior communicating artery was noted. No occlusions or aneurysms were noted. The visualized portions of the vertebral arteries demonstrate normal caliber and join to form a normal-appearing basilar artery. origin of the right posterior cerebral artery. The flow within the posterior cerebral arteries is normal and symmetric. No stenosis, occlusions or aneurysms were noted. I also reviewed with her that the abnormality appreciated on the CT is likely a benign meningioma, however, it is recommended that in three months a repeat magnetic resonance imaging study of her brain with and without contrast be performed to assess the stability of this lesion. She reports no pain in both ankles, however, there is a mild degree of edema on examination. PHYSICAL EXAMINATION: Temperature 36.5, pulse of 52, respiratory rate of 18, blood pressure 137/95, pulse oximetry 98% on room air. General: She is a well-developed, well-nourished woman in no acute distress. Head: Normocephalic, atraumatic. Neck is supple. No carotid bruits were auscultated. Chest: Clear to auscultation. Heart: Regular rate and rhythm. Abdomen: Soft, nondistended, nontender. Extremities: There was trace dependent edema of the bilateral distal lower extremities. No cyanosis or clubbing was noted. Negative José sign bilaterally. NEUROLOGIC EXAMINATION: Mental status: She is awake, alert, oriented x3. Her grandson serves as historic interpreter speaking in Turkish, however, the patient also appeared to understand at least a moderate degree of [place] and was able to follow commands. No aphasia noted on examination, however, this was limited by translation into Turkish and a moderate degree of understanding of [place]. There is no dysarthria noted and no apparent aphasia. Cranial nerves: Pupils are the eccentric and asymmetric. They did appear reactive to light. Visual covington were full to confrontation. Extraocular movements were smooth and conjugate with no evidence of nystagmus. Face appeared symmetrical. Facial sensation was intact to light touch and temperature. Auditory sensation was intact to finger rub. Palatal elevation was symmetrical. Tongue was midline. Sternocleidomastoid and trapezii are 5/5 bilaterally. Motor: There was no pronator drift noted. Normal muscle strength 5/5 throughout. Sensation was intact to light touch and temperature. Coordination: Pttgpe-cs-hugr was intact bilaterally with no evidence of dysmetria. Deep tendon reflexes were diminished throughout. Plantars were equivocal bilaterally. Gait was deferred. IMPRESSION: Rule out transient ischemic attack. Given that she does have multiple stroke/cerebrovascular risk factors and it is unclear how compliant she is with aspirin daily, and there is evidence of moderate intracranial middle cerebral artery stenosis, I do recommend optimization of control of her stroke risk factors. Daily aspirin 81 mg. I do also recommend a repeat magnetic resonance imaging study of her brain with and without contrast in three months. Given that she does have moderate left middle cerebral artery stenosis, I think she would benefit from optimization of control of stroke risk factors to reduce the progression of atherosclerosis and resultant intracranial stenosis. I do recommend that she take aspirin daily. Although there was evidence from the YORDY trial demonstrating benefit in dual antiplatelet therapy for intracranial stenosis, based on the clinical history it is unclear that this particular event represented a cerebrovascular event involving the left middle cerebral artery. In the event that her symptoms would be clearly suggestive of a transient ischemic attack involving the left middle cerebral artery, I would consider dual antiplatelet therapy for three months followed by continuing on aspirin alone. However, it is unclear from the history if this clearly was a transient ischemic attack versus a transient episode of encephalopathy. However, given overall her multiple risk factors, my suspicion is that this may have represented a transient ischemic attack. However, I cannot clearly localize where neuroanatomically this may have occurred. Given this diagnostic uncertainty, I do recommend the importance of aspirin 81 mg daily and optimization of control of her stroke risk factors. Regarding the patent foramen ovale, there is no evidence suggestive of deep venous thrombosis, however, she may benefit from an ultrasound of her bilateral distal lower extremities if there is concern for the possibility of deep venous thrombosis. Thank you, again, Dr. Hoover, for allowing me to participate in the care of your patient. Please feel free to contact me with any questions or concerns. LANA
--- NOTE | 2017-01-06 22:20 | NUR ---
Constipation/Pain C/O abd pain likely r/t constipation gave prn miralax w/effect large BM "too much" and abd discomfort resolved
--- NOTE | 2017-01-06 23:07 | PCM.PNMED ---
Subjective Date of Service Jan 06, 2017 Subjective The patient is complaining of constipation. She has no other new complaints. She is feeling a little bit stronger and is able to ambulate to the bathroom. Exam Vital Signs Vital Sign - Last Date Time Temp Pulse Resp B/P Pulse Ox O2 Delivery O2 Flow Rate FiO2 01/06/17 22:33 36.6 72 17 158/75 98 Room Air Intake and Output 01/05/17 01/05/17 01/06/17 Cumulative From/Thru 15:00 23:00 07:00 01/05/17 11:54 - 01/06/17 05:47 Intake Total 1000 ml 450 ml 963 ml 2413 ml Output Total 200 ml 500 ml 700 ml Balance 1000 ml 250 ml 463 ml 1713 ml Intake Oral 450 ml 300 ml 750 ml IV Total 1000 ml 663 ml 1663 ml Output Urine Total 200 ml 500 ml 700 ml # Voids 2 3 5 # Bowel Movements 0 0 Exam General: The patient is in no significant distress. She does appear to be somewhat uncomfortable due to constipation. HEENT: Head is atraumatic and normocephalic. Eyes: Pupils are equally round and reactive to light and accommodation. Extraocular muscles are intact. Sclera are white, anicteric. Subconjunctival mucosa is pink. Ears and nose are unremarkable. Oropharynx: There is no mucosal lesions, there is no thrush, there is no pharyngitis. Neck: Is supple, there are no nodes, or masses or tenderness. Chest: Is clear to auscultation and percussion. There are no rales, rhonchi, wheezes or rubs. Heart: Rate, rhythm is regular. There are a few irregular beats. There is no murmur, rub or gallop. Although, heart tones are distant Abdomen: Good bowel sounds are present. Abdomen is obese, soft, nontender, no organomegaly or masses were appreciated. Extremities: Are symmetrical and well perfused. There is trace edema, there is no cellulitis, no rash. Neurologic: There are no focal neurological deficits. Cranial nerves II through XII are intact. There are no sensory or motor deficits. Patient was able to ambulate to the restroom with physical therapy and nursing. Psychiatric: Patients mood is calm and shows no sign of agitation. Genital: Deferred Rectal: Deferred Lab and Diagnostics Result Diagram: 01/06/17 0600 01/06/17 0600 X-Rays, CTs and MRIs PROCEDURE: X-RAY CHEST ONE VIEW, PORTABLE ([id number]) INDICATIONS: weakness TECHNIQUE: One view of the chest was acquired. COMPARISON: [facility], CR, XR CHEST 1VW (PORTABLE), 02/06/2016, 17: 14. FINDINGS: Surgical changes and devices: None. Lungs and pleura: No pleural effusions or pneumothorax. Lungs are clear. Mediastinum: Mediastinal contours appear normal. Heart size is normal. Bones and chest wall: No suspicious bony lesions. Overlying soft tissues appear unremarkable. IMPRESSION: No acute cardiopulmonary disease process. Dictated by: Azra Nava MD, PhD on 01/05/2017 at 11:33 Approved by: Azra Nava MD, PhD on 01/05/2017 at 11:33 PROCEDURE: CT BRAIN WITHOUT CONTRAST ([id number]) INDICATIONS: excessive somnolence TECHNIQUE: Noncontrast 4.5 mm thick angled axial sections acquired from the foramen magnum to the vertex, with coronal reformats. COMPARISON: None. FINDINGS: Image quality: Excellent. CSF spaces: Basal cisterns are patent. No extra-axial fluid collections. The ventricles are symmetric in size and shape. Brain: There is a focus of thin, serpiginous calcification along the lateral aspect of the left frontal lobe seen on series 3 image 21, extending to the calvarium. No priors are available for comparison. There is cerebral volume loss for age, with resultant ventricular and sulcal prominence. There are periventricular and deep white matter chronic small vessel ischemic changes. There is intracranial internal carotid artery atherosclerosis. Skull and face: Calvarium and visualized facial bones appear intact, without suspicious lesions. Sinuses: Visualized sinuses and mastoids are clear. IMPRESSION: 1. Thin hyperdense serpiginous appearance within the left frontal lobe laterally extending to the calvarium. Overall appearance appears more dense than expected for hemorrhage and finding is suspicious related to chronic calcifications, possibly dural in nature. However, given the somewhat atypical appearance, small focus of underlying hemorrhage cannot be definitively excluded. Six-hour interval followup is recommended to document stability. 2. Moderate atrophy and chronic microvascular ischemic changes. Dictated by: Georgina Acevedo M.D. on 01/05/2017 at 11:42 Approved by: Georgina Acevedo M.D. on 01/05/2017 at 11:44 ROCEDURE: US BILATERAL DUPLEX DOPPLER IMAGING OF THE CAROTIDS ([id number]) INDICATIONS: Possible CVA TECHNIQUE: Color and pulse Doppler interrogation was performed of both carotid systems, with image documentation and velocity measurements. COMPARISON: None. FINDINGS: All stenosis calculations are based on NASCET criteria. Right side: Brachial blood pressure: Not obtained. Common carotid artery peak systolic velocity: 106 cm/sec. Internal carotid artery peak systolic velocity: 89 cm/sec. Internal carotid artery end diastolic velocity: 25 cm/sec. External carotid artery peak systolic velocity: 72 cm/sec. ICA/CCA peak systolic ratio: 0.8. Horan scale imaging description: Minimal plaque. Percent internal carotid artery stenosis: Less than 50%. Vertebral artery: Flow direction is antegrade. Left side: Brachial blood pressure: 177/70 mm Hg. Common carotid artery peak systolic velocity: 81 cm/sec. Internal carotid artery peak systolic velocity: 115 cm/sec. Internal carotid artery end diastolic velocity: 22 cm/sec. External carotid artery peak systolic velocity: Extending 9 cm/sec. ICA/CCA peak systolic ratio: 1.4 Horan scale imaging description: Minimal plaque. Percent internal carotid artery stenosis: Less than 50%. Vertebral artery: Flow direction is antegrade. IMPRESSION: Less than 50% bilateral internal carotid artery stenosis. Dictated by: Miguel Quezada RRA Interpreted: Elissa Keys MD on 01/05/2017 at 16:17 Transcribed by: CHENTE on 01/05/2017 at 16:19 Approved by: Elissa Keys M.D. on 01/05/2017 at 17:43 PROCEDURE: CT BRAIN WITHOUT CONTRAST ([id number]) INDICATIONS: repeat for calcification vs bleed TECHNIQUE: Noncontrast 4.5 mm thick angled axial sections acquired from the foramen magnum to the vertex, with coronal reformats. COMPARISON: [facility], CT, CT BRAIN WO CON, 01/05/2017, 11:31. FINDINGS: Image quality: Excellent. CSF spaces: Basal cisterns are patent. No extra-axial fluid collections. The ventricles are symmetric in size and shape. Brain: No intracranial bleeds or masses. There is cerebral volume loss for age , with resultant ventricular and sulcal prominence. There are periventricular and deep white matter chronic small vessel ischemic changes. Focal serpiginous calcification is redemonstrated along the left frontal calvarium unchanged from the study from earlier today. There is intracranial internal carotid artery atherosclerosis. Skull and face: Calvarium and visualized facial bones appear intact, without suspicious lesions. Sinuses: Visualized sinuses and mastoids are clear. IMPRESSION: 1. Stable appearance of the left frontal calcification, likely within the subdural space when compared with the study from earlier today. 2. No new acute intracranial findings. 3. Chronic findings likely associated with microvascular ischemia, as before. Dictated by: Dinora Soto M.D. on 01/05/2017 at 17:44 Approved by: Dinora Soto M.D. on 01/05/2017 at 17:48 PROCEDURE: X-RAY CHEST, TWO VIEWS ([id number]) INDICATIONS: Possible Aspiration TECHNIQUE: 2 views of the chest were acquired. COMPARISON: [facility], CR, XR CHEST 1VW (PORTABLE), 01/05/2017, 11: 06. [facility], CR, XR CHEST 1VW (PORTABLE), 02/06/2016, 17:14. FINDINGS: Surgical changes and devices: None. Lungs and pleura: No pleural effusions or pneumothorax. Lung volumes are low and left basilar airspace opacity present. Mediastinum: Mediastinal contours are normal. Heart size is normal. Bones and chest wall: No suspicious bony abnormalities. Soft tissues appear unremarkable. IMPRESSION: Left atelectasis versus aspiration or pneumonia. Correlate clinically. Dictated by: Miguel Quezada RRA Interpreted: Azra Nava MD on 01/06/2017 at 10:07 Transcribed by: MAGDY on 01/06/2017 at 10:08 Approved by: Azra Nava MD, PhD on 01/06/2017 at 16:31 BRAIN MRI: 1. 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 Followup brain MRI with and without intravenous contrast in 3 months is recommended to rule out last likely, more aggressive etiologies. 2. No acute process. No recent infarct. 3. Mild volume loss and small vessel ischemic disease. BRAIN MR ANGIOGRAM: 1. Moderate left middle cerebral artery stenosis. Otherwise negative cerebral MR angiography. NECK MR ANGIOGRAM: 1. 50% right and 30% left internal carotid artery origin stenoses. 2. Moderate bilateral common carotid artery stenoses secondary to vessel tortuosity and kinking. 3. Patent vertebral arteries bilaterally. The estimate of stenosis included in the report of the imaging study was calculated using the NASCET method Cardiac Echo Impressions Echocardiogram Report Name: ABELARDO NAGY Study Date: 01/06/2017 Height: 60 in Hospital Exam Location: [facility] Weight: 189 lb Gender: Female BSA: 1.8 m2 : 1935 Age: 81 yrs BP: 196/71 mmHg Reason For Study: CVA Ordering Physician: Performed By: Teena Kiser Referring Physician: Melisa Lewis Interpretation Summary The ejection fraction is estimated to be 60-65%. The left atrium is borderline dilated. A patent foramen ovale is present. Doppler evidence suggests a left to right interatrial shunt. There is mild aortic regurgitation. The right ventricular systolic pressure is estimated at 30 mmHg assuming a right atrial pressure of 3 mm Hg. Assessment & Plan Patient is a very pleasant 81-year-old female from the [facility] who speaks very little Congolese. Patient was accompanied by her grandson "Arthur" who states that he is fluent in Congolese and Croatian language. He was able to be his grandmothers accounts receivable clerk. The patient is visiting her daughter and grandson here in [place]. She normally lives with another granddaughter and in [place], [place]. The patient stated that she awoke at approximately 8 AM this morning and she "could not stand up". She complained of dizziness as well. She then called 911. In the emergency room patient was evaluated by Dr. Zachariah Cunningham was told that the family called EMS because the patient had been excessively fatigued to the point of falling asleep during conversations. Associated symptoms included nausea dizziness, lightheadedness, abdominal pain and constipation. She denied any vomiting or focal numbness or weakness or slurred speech. She was apparently completely "normal" yesterday. Therefore Dr. Jeison Cunningham ordered a CT scan of the brain which showed a thin hyperdense serpiginous appearance within the left frontal lobe laterally extending to the calvarium. The overall appearance appeared more dense than expected for hemorrhage and the finding is suspicious related to chronic calcifications, possibly dural in nature. However, given the somewhat atypical appearance, small focus of underlying hemorrhage cannot be definitively ordered excluded. Six-hour interval follow-up was recommended to document stability. The brain also showed moderate atrophy and chronic microvascular ischemic changes. Dr. Zachariah Cunningham therefore admitted the patient to the hospital service with a diagnosis of "stroke". He consulted with Dr. Al Betancur of neurology who said that he would see the patient. Aspirin was held due to the potential of bleeding versus calcification. The patient had an NIH stroke scale of 5 however 4 of the 5 points were treatable due to bilateral symmetrical lower extremity weakness. Dr. Zachariah Cunningham's primary impression was dizziness and that the patient was at "at risk for stroke. Again he was admitted to the hospital service for further evaluation treatment. # Weakness and dizziness - Etiology is uncertain. Patient will start he had regained some strength - Possible cerebrovascular accident which may not be clearly elucidated on both brain CT scans. - Abnormal finding on CT scan earlier today is currently unchanged. - We will check MRI of the brain in a.m. using stroke protocol. - I have consulted and spoken to neurologist Dr. Al Snyder who will see the patient in consultation. - We will hold aspirin at this time, due to the potential of possible bleeding - We will continue with IV fluids with normal saline with 20 mg KCl at 80 mL an hour. - We will check echocardiogram # Insulin-dependent diabetes mellitus - Continue home insulin dosing as well sliding scale insulin coverage. - Continue metformin as at home - We will monitor blood sugars before meals and at bedtime. # Hypertension - Continue home lisinopril. - We will add low-dose amlodipine. - Patient has suffered a cerebrovascular accident will allow "permissive hypertension ". # Hyperlipidemia - We will continue lovastatin. Disposition: It is suspected that patient will be here for more than 2 minutes for evaluation and treatment of the above condition. Her for, patient was admitted to the hospital as an inpatient. Pain Evaluation: Adequate Pain Control GI Prophylaxis: Proton Pump Inhibitor VTE Prophylaxis: Sub-Q Enoxaparin VTE Mechanical Devices: Intermittant Pneumatic CD Resuscitation Status: CPR: Attempt Resuscitation Alexander Hoover MD Jan 06, 2017 23:07
[2017-01-07] VITALS (7 sets, daily range): BP systolic 146–198; BP diastolic 74–88; PULSE 55–71; RESP 16–20; O2SAT 98
[2017-01-07] MEDS: 0.9% NaCl + KCl 20 mEq/L 1,000 ML IV SCH (03:46)
[2017-01-07 06:47] LABS: BASOPHILS % (AUTO) 0.2 % (0-3); EOSINOPHILS % (AUTO) 4.5 % (0-5); MONOCYTES % (AUTO) 6.3 % (4-12); Mean Corpuscular Volume 87.7 fL (81-100); NEUTROPHILS % (AUTO) 57.6 % (40-74); Platelet Count 211 bil/L (150-400)
[2017-01-07] MEDS: Insulin LISPRO 300 Unit/3 mL Inj SUBQ SCH ×4 (08:30→12:00)
[2017-01-07] MEDS: Pantoprazole 40 mg ER24 Tablet PO SCH (08:52)
[2017-01-07] MEDS: Insulin GLARgine 100 Unit/mL Syringe SUBQ SCH (08:55)
--- NOTE | 2017-01-07 10:40 | DRSVH ---
PROCEDURE: US VENOUS LEG DUPLEX BILATERAL INDICATIONS: possible DVT TECHNIQUE: Real-time imaging, as well as color and pulse Doppler interrogation, were performed of the deep veins of both legs from the inguinal ligament to the popliteal fossa. COMPARISON: None. FINDINGS: The deep veins are normally compressible, and free of intraluminal thrombus. Color and pu lse Doppler demonstrate normal phasic intravascular flow. There is normal augmentation response to d istal compression maneuver. IMPRESSION: No deep venous thrombosis identified within either the left or right lower extremities. Dictated by: Miguel Quezada [facility] Interpreted: Azra Nava MD on 01/07/2017 at 10:39 Transcribed by: MAGDY on 01/07/2017 at 10:40 Approved by: Azra Nava MD, PhD on 01/07/2017 at 16:36
--- NOTE | 2017-01-07 11:05 | NUR ---
Elevated BP Contacted Dr. Hoover with the following cook page: Patient's current BP is 198/76, please advise of any changes. Thank you. Silvana YADAV
[2017-01-07] MEDS: metFORMIN ER 500 mg ER24 Tablet PO SCH (11:07)
--- NOTE | 2017-01-07 13:09 | NUR ---
BP recheck Rechecked patient's BP since discontinuing fluids and prior to PT working with patient, as PT was concerned to work with her with an elevated BP, current BP is 146/74. Called Carolyn Hamilton PT to let her know patient's current BP.
--- NOTE | 2017-01-07 13:33 | NUR ---
PT/Possible Discharge Contacted Dr. Hoover with the following cook page: PT has seen patient, stated patient was able to ambulate independently, did not lose balance. Please advise of discharge order. Thank you. Silvana [facility] [id number]
--- NOTE | 2017-01-07 14:03 | PCM.DIMED ---
Discharge Instructions Date of Service Jan 07, 2017 Dates of Hospitalization Jan 05, 2017 at 20:28 Discharge Diagnosis Discharge Diagnosis Weakness Diet Heart Healthy Activity No restrictions (The patient may resume usual activities gradually as tolerated. ) Call your provider Fever or Chills, Shortness of breath, Bleeding, Chest pain, Vomitting, Excessive diarrhea, Weakness (unilateral), Other Patient Instructions Follow-up with PCP in: 1 week (The patient is to follow up with her PCP in [place], [place] in one week.) Alexander Hoover MD Jan 07, 2017 14:03
--- NOTE | 2017-01-07 14:30 | NUR ---
Discharge Note Provided all discharge instructions and information to patient and patient's grandson, no questions at this time. Patient's IV discontinued intact at this time. Patient and patient's grandson removed all belongings from room at this time. Patient was transported via wheelchair to waiting vehicle.
--- NOTE | 2017-01-07 23:44 | PCM.DC.MED ---
Discharge Summary Date of Service Jan 07, 2017 Dates of Hospitalization Date of Hospital Admission Jan 05, 2017 at 20:28 Date of Discharge: Jan 07, 2017 Providers: Admitting Physician: Alexander Hoover MD Primary Care Physician: Other,Physician Attending Physician: Alexander Hoover MD Diagnosis at Time of Discharge Diagnosis at Time of Discharge Weakness Procedures XRay, CTs & MRIs PROCEDURE: X-RAY CHEST ONE VIEW, PORTABLE ([id number]) INDICATIONS: weakness TECHNIQUE: One view of the chest was acquired. COMPARISON: [facility], CR, XR CHEST 1VW (PORTABLE), 02/06/2016, 17: 14. FINDINGS: Surgical changes and devices: None. Lungs and pleura: No pleural effusions or pneumothorax. Lungs are clear. Mediastinum: Mediastinal contours appear normal. Heart size is normal. Bones and chest wall: No suspicious bony lesions. Overlying soft tissues appear unremarkable. IMPRESSION: No acute cardiopulmonary disease process. Dictated by: Azra Nava MD, PhD on 01/05/2017 at 11:33 Approved by: Azra Nava MD, PhD on 01/05/2017 at 11:33 PROCEDURE: CT BRAIN WITHOUT CONTRAST ([id number]) INDICATIONS: excessive somnolence TECHNIQUE: Noncontrast 4.5 mm thick angled axial sections acquired from the foramen magnum to the vertex, with coronal reformats. COMPARISON: None. FINDINGS: Image quality: Excellent. CSF spaces: Basal cisterns are patent. No extra-axial fluid collections. The ventricles are symmetric in size and shape. Brain: There is a focus of thin, serpiginous calcification along the lateral aspect of the left frontal lobe seen on series 3 image 21, extending to the calvarium. No priors are available for comparison. There is cerebral volume loss for age, with resultant ventricular and sulcal prominence. There are periventricular and deep white matter chronic small vessel ischemic changes. There is intracranial internal carotid artery atherosclerosis. Skull and face: Calvarium and visualized facial bones appear intact, without suspicious lesions. Sinuses: Visualized sinuses and mastoids are clear. IMPRESSION: 1. Thin hyperdense serpiginous appearance within the left frontal lobe laterally extending to the calvarium. Overall appearance appears more dense than expected for hemorrhage and finding is suspicious related to chronic calcifications, possibly dural in nature. However, given the somewhat atypical appearance, small focus of underlying hemorrhage cannot be definitively excluded. Six-hour interval followup is recommended to document stability. 2. Moderate atrophy and chronic microvascular ischemic changes. Dictated by: Georgina Acevedo M.D. on 01/05/2017 at 11:42 Approved by: Georgina Acevedo M.D. on 01/05/2017 at 11:44 ROCEDURE: US BILATERAL DUPLEX DOPPLER IMAGING OF THE CAROTIDS ([id number]) INDICATIONS: Possible CVA TECHNIQUE: Color and pulse Doppler interrogation was performed of both carotid systems, with image documentation and velocity measurements. COMPARISON: None. FINDINGS: All stenosis calculations are based on NASCET criteria. Right side: Brachial blood pressure: Not obtained. Common carotid artery peak systolic velocity: 106 cm/sec. Internal carotid artery peak systolic velocity: 89 cm/sec. Internal carotid artery end diastolic velocity: 25 cm/sec. External carotid artery peak systolic velocity: 72 cm/sec. ICA/CCA peak systolic ratio: 0.8. Horan scale imaging description: Minimal plaque. Percent internal carotid artery stenosis: Less than 50%. Vertebral artery: Flow direction is antegrade. Left side: Brachial blood pressure: 177/70 mm Hg. Common carotid artery peak systolic velocity: 81 cm/sec. Internal carotid artery peak systolic velocity: 115 cm/sec. Internal carotid artery end diastolic velocity: 22 cm/sec. External carotid artery peak systolic velocity: Extending 9 cm/sec. ICA/CCA peak systolic ratio: 1.4 Horan scale imaging description: Minimal plaque. Percent internal carotid artery stenosis: Less than 50%. Vertebral artery: Flow direction is antegrade. IMPRESSION: Less than 50% bilateral internal carotid artery stenosis. Dictated by: Miguel Quezada RRA Interpreted: Elissa Keys MD on 01/05/2017 at 16:17 Transcribed by: CHENTE on 01/05/2017 at 16:19 Approved by: Elissa Keys M.D. on 01/05/2017 at 17:43 PROCEDURE: CT BRAIN WITHOUT CONTRAST ([id number]) INDICATIONS: repeat for calcification vs bleed TECHNIQUE: Noncontrast 4.5 mm thick angled axial sections acquired from the foramen magnum to the vertex, with coronal reformats. COMPARISON: [facility], CT, CT BRAIN WO CON, 01/05/2017, 11:31. FINDINGS: Image quality: Excellent. CSF spaces: Basal cisterns are patent. No extra-axial fluid collections. The ventricles are symmetric in size and shape. Brain: No intracranial bleeds or masses. There is cerebral volume loss for age , with resultant ventricular and sulcal prominence. There are periventricular and deep white matter chronic small vessel ischemic changes. Focal serpiginous calcification is redemonstrated along the left frontal calvarium unchanged from the study from earlier today. There is intracranial internal carotid artery atherosclerosis. Skull and face: Calvarium and visualized facial bones appear intact, without suspicious lesions. Sinuses: Visualized sinuses and mastoids are clear. IMPRESSION: 1. Stable appearance of the left frontal calcification, likely within the subdural space when compared with the study from earlier today. 2. No new acute intracranial findings. 3. Chronic findings likely associated with microvascular ischemia, as before. Dictated by: Dinora Soto M.D. on 01/05/2017 at 17:44 Approved by: Dinora Soto M.D. on 01/05/2017 at 17:48 PROCEDURE: X-RAY CHEST, TWO VIEWS ([id number]) INDICATIONS: Possible Aspiration TECHNIQUE: 2 views of the chest were acquired. COMPARISON: [facility], CR, XR CHEST 1VW (PORTABLE), 01/05/2017, 11: 06. [facility], CR, XR CHEST 1VW (PORTABLE), 02/06/2016, 17:14. FINDINGS: Surgical changes and devices: None. Lungs and pleura: No pleural effusions or pneumothorax. Lung volumes are low and left basilar airspace opacity present. Mediastinum: Mediastinal contours are normal. Heart size is normal. Bones and chest wall: No suspicious bony abnormalities. Soft tissues appear unremarkable. IMPRESSION: Left atelectasis versus aspiration or pneumonia. Correlate clinically. Dictated by: Miguel Quezada RRA Interpreted: Azra Nava MD on 01/06/2017 at 10:07 Transcribed by: MAGDY on 01/06/2017 at 10:08 Approved by: Azra Nava MD, PhD on 01/06/2017 at 16:31 BRAIN MRI: 1. 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 Followup brain MRI with and without intravenous contrast in 3 months is recommended to rule out last likely, more aggressive etiologies. 2. No acute process. No recent infarct. 3. Mild volume loss and small vessel ischemic disease. BRAIN MR ANGIOGRAM: 1. Moderate left middle cerebral artery stenosis. Otherwise negative cerebral MR angiography. NECK MR ANGIOGRAM: 1. 50% right and 30% left internal carotid artery origin stenoses. 2. Moderate bilateral common carotid artery stenoses secondary to vessel tortuosity and kinking. 3. Patent vertebral arteries bilaterally. The estimate of stenosis included in the report of the imaging study was calculated using the NASCET method Cardiac Echo Impression Echocardiogram Report Name: ABELARDO NAGY Study Date: 01/06/2017 Height: 60 in Hospital Exam Location: [facility] Weight: 189 lb Gender: Female BSA: 1.8 m2 : 1935 Age: 81 yrs BP: 196/71 mmHg Reason For Study: CVA Ordering Physician: Performed By: Teena Kiser Referring Physician: Melisa Lewis Interpretation Summary The ejection fraction is estimated to be 60-65%. The left atrium is borderline dilated. A patent foramen ovale is present. Doppler evidence suggests a left to right interatrial shunt. There is mild aortic regurgitation. The right ventricular systolic pressure is estimated at 30 mmHg assuming a right atrial pressure of 3 mm Hg. Brief History Patient is a very pleasant 81-year-old female from the [facility] who speaks very little [place]ian. Patient was accompanied by her grandson "Arthur" who states that he is fluent in [place] and [place] language. He was able to be his grandmothers consultant nurse. The patient is visiting her daughter and grandson here in [place]. She normally lives with another granddaughter and in [place], [place]. The patient stated that she awoke at approximately 8 AM this morning and she "could not stand up". She complained of dizziness as well. She then called 911. In the emergency room patient was evaluated by Dr. Zachariah Cunningham was told that the family called EMS because the patient had been excessively fatigued to the point of falling asleep during conversations. Associated symptoms included nausea dizziness, lightheadedness, abdominal pain and constipation. She denied any vomiting or focal numbness or weakness or slurred speech. She was apparently completely "normal" yesterday. Therefore Dr. Jeison Cunningham ordered a CT scan of the brain which showed a thin hyperdense serpiginous appearance within the left frontal lobe laterally extending to the calvarium. The overall appearance appeared more dense than expected for hemorrhage and the finding is suspicious related to chronic calcifications, possibly dural in nature. However, given the somewhat atypical appearance, small focus of underlying hemorrhage cannot be definitively ordered excluded. Six-hour interval follow-up was recommended to document stability. The brain also showed moderate atrophy and chronic microvascular ischemic changes. Dr. Zachariah Cunningham therefore admitted the patient to the hospital service with a diagnosis of "stroke". He consulted with Dr. Al Betancur of neurology who said that he would see the patient. Aspirin was held due to the potential of bleeding versus calcification. The patient had an NIH stroke scale of 5 however 4 of the 5 points were treatable due to bilateral symmetrical lower extremity weakness. Dr. Zachariah Cunningham's primary impression was dizziness and that the patient was at "at risk for stroke. Again he was admitted to the hospital service for further evaluation treatment. Hospital Course Patient is a very pleasant 81-year-old female from the [facility] who speaks very little [place]ian. Patient was accompanied by her grandson "Arthur" who states that he is fluent in [place] and [place] language. He was able to be his grandmothers consultant nurse. The patient is visiting her daughter and grandson here in [place]. She normally lives with another granddaughter and in [place], [place]. The patient stated that she awoke at approximately 8 AM this morning and she "could not stand up". She complained of dizziness as well. She then called 911. In the emergency room patient was evaluated by Dr. Zachariah Cunningham was told that the family called EMS because the patient had been excessively fatigued to the point of falling asleep during conversations. Associated symptoms included nausea dizziness, lightheadedness, abdominal pain and constipation. She denied any vomiting or focal numbness or weakness or slurred speech. She was apparently completely "normal" yesterday. Therefore Dr. Jeison Cunningham ordered a CT scan of the brain which showed a thin hyperdense serpiginous appearance within the left frontal lobe laterally extending to the calvarium. The overall appearance appeared more dense than expected for hemorrhage and the finding is suspicious related to chronic calcifications, possibly dural in nature. However, given the somewhat atypical appearance, small focus of underlying hemorrhage cannot be definitively ordered excluded. Six-hour interval follow-up was recommended to document stability. The brain also showed moderate atrophy and chronic microvascular ischemic changes. Dr. Zachariah Cunningham therefore admitted the patient to the hospital service with a diagnosis of "stroke". He consulted with Dr. Al Betancur of neurology who said that he would see the patient. Aspirin was held due to the potential of bleeding versus calcification. The patient had an NIH stroke scale of 5 however 4 of the 5 points were treatable due to bilateral symmetrical lower extremity weakness. Dr. Zachariah Cunningham's primary impression was dizziness and that the patient was at "at risk for stroke. Again he was admitted to the hospital service for further evaluation treatment. # Weakness and dizziness - Etiology is uncertain. Patient will start he had regained some strength - Possible cerebrovascular accident which may not be clearly elucidated on both brain CT scans. - Abnormal finding on CT scan earlier today is currently unchanged. - We will check MRI of the brain in a.m. using stroke protocol. - I have consulted and spoken to neurologist Dr. Al Snyder who will see the patient in consultation. - We will hold aspirin at this time, due to the potential of possible bleeding - We will continue with IV fluids with normal saline with 20 mg KCl at 80 mL an hour. - We will check echocardiogram # Insulin-dependent diabetes mellitus - Continue home insulin dosing as well sliding scale insulin coverage. - Continue metformin as at home - We will monitor blood sugars before meals and at bedtime. # Hypertension - Continue home lisinopril. - We will add low-dose amlodipine. - Patient has suffered a cerebrovascular accident will allow "permissive hypertension ". # Hyperlipidemia - We will continue lovastatin. Disposition: The patient is feeling much stronger and has had a bowel movement and is feeling back to her normal self. We will therefore discharge her home. Exam Vital Signs (Last) Date Time Temp Pulse Resp B/P Pulse Ox O2 Delivery O2 Flow Rate FiO2 01/07/17 13:50 Room Air 01/07/17 13:09 146/74 01/07/17 11:05 36.6 55 16 98 Exam General: The patient is in no significant distress. She does appear to be somewhat uncomfortable due to constipation. HEENT: Head is atraumatic and normocephalic. Eyes: Pupils are equally round and reactive to light and accommodation. Extraocular muscles are intact. Sclera are white, anicteric. Subconjunctival mucosa is pink. Ears and nose are unremarkable. Oropharynx: There is no mucosal lesions, there is no thrush, there is no pharyngitis. Neck: Is supple, there are no nodes, or masses or tenderness. Chest: Is clear to auscultation and percussion. There are no rales, rhonchi, wheezes or rubs. Heart: Rate, rhythm is regular. There are a few irregular beats. There is no murmur, rub or gallop. Although, heart tones are distant Abdomen: Good bowel sounds are present. Abdomen is obese, soft, nontender, no organomegaly or masses were appreciated. Extremities: Are symmetrical and well perfused. There is trace edema, there is no cellulitis, no rash. Neurologic: There are no focal neurological deficits. Cranial nerves II through XII are intact. There are no sensory or motor deficits. Patient was able to ambulate to the restroom with physical therapy and nursing. Psychiatric: Patients mood is calm and shows no sign of agitation. Genital: Deferred Rectal: Deferred Test 01/05/17 11:00 01/05/17 12:06 01/06/17 06:00 01/07/17 06:42 Prothrombin Time 10.0sec (8.1-12.5) Prothromb Time International Ratio 0.94ratio Activated Partial Thromboplast Time 26.0sec (22.8-33.0) Hemoglobin A1c 11.2% (4.8-5.6) Troponin T 0.010ug/L (0.0-0.011) Alcohols < 10mg/dL (0-10) Urine Color Yellow (YELLOW) Urine Appearance Hazy (CLEAR,HAZY) Urine pH 5.5 (5.0-8.0) Urine Specific [place] 1.020 (1.003-1.035) Urine Protein Tracemg/dL (NEG,TRACE) Urine Glucose (UA) 100mg/dL (NEGATIVE) Urine Ketones Negativemg/dL (NEGATIVE) Urine Occult Blood Trace (NEGATIVE) Urine Nitrite Negative (NEGATIVE) Urine Bilirubin Negative (NEGATIVE) Urine Urobilinogen Normalmg/dL (NORMAL) Urine Leukocyte Esterase Negative (NEGATIVE) Urine RBC 0-2/hpf (0-2) Urine WBC 0-5/hpf (0-5) Urine Epithelial Cells Occasional/hpf (NONE-MOD) Urine Crystals None seen (NONE SEEN) Urine Bacteria Few/hpf (NONE-FEW) Urine Hyaline Casts None/lpf (NONE) Urine Granular Casts None seen (NONE SEEN) Urine Waxy Casts None seen (NONE SEEN) Urine Red Blood Cell Casts None seen (NONE SEEN) Urine White Blood Cell Casts None seen (NONE SEEN) Urine Mucus None seen (None Seen) Urine Trichomonas None seen (NONE SEEN) Urine Yeast None (NONE SEEN) Urinalysis Comment None Urine Culture Reflexed Not indicated Urine Opiates Screen Negative Urine Methadone Screen Negative Urine Barbiturates Screen Negative Urine Amphetamines Screen Negative Urine Benzodiazepines Screen Negative Urine Cocaine Metabolite Screen Negative Urine Cannabinoids Screen Negative Phosphorus Level 3.4mg/dL (2.5-4.9) Procalcitonin 0.04ng/mL (0.00-0.08) Thyroid Stimulating Hormone (TSH) 6.100uIU/mL (0.450-4.500) White Blood Count 5.8th/mm3 (3.8-10.1) Red Blood Count 3.97mil/mm3 (3.90-5.20) Hemoglobin 11.5g/dL (12.0-15.6) Hematocrit 34.8% (35.0-46.0) Mean Corpuscular Volume 87.7fL (81-100) Mean Corpuscular Hemoglobin 29.0pg (27.0-35.0) Mean Corpuscular Hemoglobin Concent 33.0% (32.0-37.0) Red Cell Distribution Width 12.7% (12.3-15.4) Platelet Count 211bil/L (150-400) Neutrophils (%) (Auto) 57.6% (40-74) Lymphocytes (%) (Auto) 31.2% (14-46) Monocytes (%) (Auto) 6.3% (4-12) Eosinophils (%) (Auto) 4.5% (0-5) Basophils (%) (Auto) 0.2% (0-3) Sodium Level 136mEq/L (134-144) Potassium Level 4.8mEq/L (3.5-5.2) Chloride Level 101mEq/L (97-108) Carbon Dioxide Level 25mmol/L (18-29) Blood Urea Nitrogen 14mg/dL (8-27) Creatinine 0.95mg/dL (0.57-1.00) Estimat Glomerular Filtration Rate 81mL/min (>59) Glucose Level 273mg/dL (60-99) Calcium Level 9.3mg/dL (8.5-10.1) Magnesium Level 2.0mg/dL (1.6-2.6) Total Bilirubin 0.3mg/dL (0.0-1.2) Aspartate Amino Transf (AST/SGOT) 15U/L (0-50) Alanine Aminotransferase (ALT/SGPT) 9U/L (0-32) Alkaline Phosphatase 65U/L (25-165) Total Protein 5.9g/dL (6.4-8.4) Albumin 3.1g/dL (3.4-5.0) Discharge Medications Discharge Medications Aspirin (Aspirin) 81 Mg Tablet 81 MG PO DAILY (Reported) Cholecalciferol (Vitamin D3) (Vitamin D) 1,000 Unit Tablet 2,000 UNITS PO DAILY (Reported) Gabapentin (Gabapentin) 100 Mg Capsule 100 MG PO HS (Reported) Hydrochlorothiazide (Hydrochlorothiazide) 12.5 Mg Capsule 12.5 MG PO DAILY ( Reported) Insulin Aspart (NovoLOG U-100 Pen) 100 Unit/Ml Insuln.pen 10 UNITS SQ MORNING ( Reported) Insulin Aspart (NovoLOG U100 Insulin Vial) 100 U/Ml U 7 UNIT SUBQ lunch/dinner ( Reported) Insulin Glargine (Lantus U100 Insulin Vial) 100 Unit/Ml Vial 40 UNITS SQ MORNING (Reported) Levothyroxine (Levothyroxine) 100 Mcg Tablet 100 MCG PO DAILY (Reported) Lisinopril (Lisinopril) 30 Mg Tablet 30 MG PO DAILY (Reported) Lovastatin (Lovastatin) 40 Mg Tablet 40 MG PO HS (Reported) Metformin ER (Metformin ER) 1,000 Mg Tablet 1,000 MG PO DAILY (Reported) Followup Plan Disposition: The patient is being discharged home with her family. Discharge Diet: Heart Healthy Discharge Activity: No restrictions Follow-up with PCP in: 1 week Time spent Time spent on discharging this patient was greater than 35 minutes, over half of which was involved in counseling and coordination of care. Alexander Hoover MD Jan 07, 2017 23:43
== END 2017-01-07 14:30 | disposition home or self-care (01) ==
LOC: EDBD 10:47 → SED 10:47 → UNDOADMOB 13:43 → MOC 13:43
PROVIDERS: ADMIT Internal Medicine Infectious Disease; ATTEND Internal Medicine Infectious Disease
DX: R53.1 Weakness (principal); R42 Dizziness and giddiness; R10.9 Unspecified abdominal pain; K59.00 Constipation, unspecified; R94.02 Abnormal brain scan; E11.9 Type 2 diabetes mellitus without complications; Z79.4 Long term (current) use of insulin; Z79.84 Long term (current) use of oral hypoglycemic drugs; I10 Essential (primary) hypertension; E78.5 Hyperlipidemia, unspecified
CPT/HCPCS: 36415; 36620; 70450; 70549; 70553; 71010; 71020; 80053; 81000; 82375; 82803; 83036; 83735; 84100; 84145; 84443; 84484; 85025; 85610; 85730; 92610; 93005; 93880; 93970; 94640; 96360; 96372; 97162; 97530; 99285; A9585; C8929; G0378; G0480; J1650; J1815; J7030